=== PATIENT | male | born 1955 | race Caucasian/White ===

== ENCOUNTER 2018-06-09 07:47 | Outpatient (CLI) | payer OTHER | END 2018-06-09 07:48 | disposition home or self-care (01) | LOC: C.CARD 07:47 ==

== ENCOUNTER 2018-07-08 06:14 | Day surgery (SDC) | payer OTHER ==
[2018-07-07 10:28] VITALS: BMI 23.6
[~2018-07-08 06:14] MED LIST: Ciprofloxacin 0.3% OPTH SOLN OS SCH; Cyclopentolate 1% Opth (2 ml) OS SCH; Ketorolac Tromethamine 0.5% Opth Soln (3 ml) OS SCH; Lactated Ringer's 500 ML IV ONE; Phenylephrine 2.5% Opht Soln OS SCH; Tropicamide 0.5% Opht Sol OS SCH
[2018-07-08] MEDS ORDERED: Tropicamide 1% Opht SOLUTION OS STA (06:40)
[2018-07-08] MEDS ORDERED: Povidone Iodine Ophthalmic 5% Soln ONE (07:15)
[2018-07-08] MEDS ORDERED: Carbachol 0.01% IO ONE (07:16)
[2018-07-08] MEDS ORDERED: Tetracaine 0.5% Ophth (OR ONLY) ONE (07:16)
[2018-07-08] MEDS ORDERED: Chondroitin/Hyaluronate Opth Syringe KIT (0.55 ml-0.5 ml) IO ONE (07:18)
[2018-07-08] MEDS ORDERED: Hyaluronidase Human, Recombi 150 U/ML VIAL ONE (07:18)
[2018-07-08] MEDS ORDERED: Lidocaine 2% MPF (5 ml) Inj ONE (07:21)
[2018-07-08] MEDS ORDERED: Propofol 10 mg/ml Inj (20 ML) ONE (07:31)
[2018-07-08] MEDS ORDERED: Midazolam 2 MG/2 ML VIAL ONE (07:55)
[2018-07-08] MEDS: Tobramycin/Dexamethasone OPHT OINT ONE ×2 (08:22→08:36)
[2018-07-08] MEDS ORDERED: Lactated Ringer's 1,000 ML IV SCH (08:45)
[2018-07-08 08:57] VITALS: O2SAT 100
[2018-07-08 09:36] VITALS: BP 117/56; PULSE 67; RESP 17; TEMP 97.6
--- NOTE | 2018-07-08 14:56 | OP ---
PROCEDURE DATE: 07/08/2018 PREOPERATIVE DIAGNOSIS: Cataract, left eye. POSTOPERATIVE DIAGNOSIS: Cataract, left eye. OPERATIVE PROCEDURE: Phacoemulsification, left eye, insertion of posterior chamber implant. SURGEON: Brandon Butler MD TYPE OF ANESTHESIA: Local intravenous sedation. PROCEDURE: The patient was brought into the operating room, placed in supine position, prepped and draped in the usual fashion for ophthalmic surgery. Lid speculum was inserted, lids and exposing globe. A side-port incision was made superiorly and inferiorly with a disposable sharp blade. Anterior chamber was filled with Viscoat. A near clear corneal incision was made temporally with a 2.75-mm keratome. Capsulorrhexis was then performed with Utrata forceps. Hydrodissection carried out with balanced salt solution. Nucleus was phacoemulsified. Remaining cortical fragments were removed with a split irrigation and aspiration system. The capsular sac was filled with Provisc. A posterior chamber lens was then injected into the capsular sac and rotated into horizontal position. Provisc was aspirated out of the anterior chamber. The pupil was constricted with Miochol. The wound was found to be watertight. Topical Betadine, Timoptic, and TobraDex ointment and pressure patch were applied. The patient tolerated the procedure well. Brandon Butler MD
== END 2018-07-08 09:38 | disposition home or self-care (01) ==
LOC: C.SDS 06:14
PROVIDERS: ATTEND Ophthalmology
DX: H26.9 Unspecified cataract (principal)
CPT/HCPCS: 66984; J2250; J2704; J3010; J3470